=== PATIENT | female | born 1950 | race Caucasian/White ===

== ENCOUNTER 2024-01-06 10:23 | Emergency (ER) | payer MEDICARE, SELFPAY ==
[2024-01-06 10:35] VITALS: BP 155/61; PULSE 76; TEMP 36.8; O2SAT 99; BMI 25.7
--- NOTE | 2024-01-06 10:59 | ECG_ITS ---
[facility] Test Date: 2024-01-06 Pat Name: MARIA G KELLY Department: Room: - Gender: Female Staffing Specialist: : [id number] Requested By: EVELIA GANN Order Number: [id number] Reading MD: QUIN CATES Measurements Intervals [place] Rate: 62 P: 60 [place]: 184 QRS: 38 QRSD: 114 T: 79 QT: 454 QTc: 458 Interpretive Statements 1100 Sinus rhythm 9150 abnormal ECG Electronically Signed On 01-06-2024 22:31:19 EDT by QUIN CATES
--- NOTE | 2024-01-06 11:02 | ED.GENADUL1 ---
HPI HPI - General Adult General Chief complaint: Weakness Stated complaint: CAN'T EAT/DRINK Time Seen by Provider: 01/06/24 10:59 History of Present Illness HPI narrative: Patient is a 73-year-old complaining of lack of bowel movements, fatigue, weakness, and also acute on chronic left hip pain. No recent fall. Patient lives at home with friends. Patient does have a history of cancer. 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 Patient states she has not been eating much over the last several weeks. Patient was in the hospital from to Friday, secondary to dehydration, weakness and fatigue. Patient had her last chemo dose 3 weeks ago. Patient is complaining of fatigue, nausea vomiting, some mild dysphagia. Patient does have a indwelling Ayoub catheter. Patient's friend is at bedside. Patient lives at home with friends. Patient's oncologist is Dr. MORRISON. Patient does have a PCP as well. Patient has no headache or neck pain. No chest pain or shortness of breath. Patient states that she is not having any bowel movements, but she is also not eating much in the past several weeks to month. All systems are negative except as noted/marked. All systems reviewed and otherwise negative. Nurses note and vital signs reviewed and patient is not hypoxic. General: The patient appears well and in no apparent distress. Patient is resting comfortably on cart. Patient is not toxic, lethargic, or listless Skin: Warm, dry, no pallor noted. There is no rash noted. No petechiae, purpura. Head: Normocephalic, atraumatic Eye: Normal conjunctiva, no drainage, EOMI. PERRL Ears, Nose, Mouth, and Throat: oral mucosa is moist. Nares patent. Mouth without vesicles. Cardiovascular: Regular Rate and Rhythm, no murmur, gallop, rub Respiratory: Patient is in no distress, no accessory muscle use, lungs are clear to auscultation, no wheezing, rales or rhonchi Back: non-tender, no CVA tenderness bilaterally to percussion. No CT LS midline pain GI: Minimal periumbilical tenderness to palpation, no peritoneal signs, no flank pain bilateral, otherwise no tenderness to palpation, no masses appreciated. No rebound, guarding, or rigidity noted. No distention. Musculoskeletal: Patient has full range of motion of all of the extremities, no motor, sensory, or focal neurological deficits Neurological: A&O x4, normal speech Psychiatric: Cooperative Related Data Previous Rx's ?Medication ?Instructions ?Recorded cephalexin 500 mg capsule 500 mg PO Q12H 7 days #14 caps 01/06/24 Allergies Allergy/AdvReac Type Severity Reaction Status Date / Time No Known Drug Allergies Allergy Verified 01/06/24 10:35 Opioid HPI Opioid Management Most Recent Opioid Data: No Data to Display [facility] PFS Medical History (Updated 01/06/24 @ 12:36 by Ramiro Zazueta MD) Chronic kidney disease ?N18.9 - Chronic kidney disease, unspecified (ICD-10) Primary lung cancer ?C34.90 - Malignant neoplasm of unspecified part of unspecified bronchus or lung (ICD-10) Breast cancer ?C50.919 - Malignant neoplasm of unspecified site of unspecified female breast (ICD-10) Surgical History (Updated 01/06/24 @ 10:53 by Lucie Mahajan RN) History of mastectomy ?Z90.10 - Acquired absence of unspecified breast and nipple (ICD-10) Exam Constitutional Vital Signs, click to edit/add: Last Vital Signs Temp 98.3 F 01/06/24 10:35 Pulse 76 01/06/24 10:35 Resp 18 01/06/24 10:35 BP 155/61 H 01/06/24 10:35 Pulse Ox 99 01/06/24 10:35 O2 Del Method Room Air 01/06/24 10:35 Course Vital Signs Vital signs: Vital Signs Temperature 98.3 F 01/06/24 10:35 Pulse Rate 76 01/06/24 10:35 Respiratory Rate 18 01/06/24 10:35 Blood Pressure 155/61 H 01/06/24 10:35 Pulse Oximetry 99 01/06/24 10:35 Oxygen Delivery Method Room Air 01/06/24 10:35 Temperature 98.3 F 01/06/24 10:35 Pulse Rate 76 01/06/24 10:35 Respiratory Rate 18 01/06/24 10:35 Blood Pressure 155/61 H 01/06/24 10:35 Pulse Oximetry 99 01/06/24 10:35 Oxygen Delivery Method Room Air 01/06/24 10:35 Medical Decision Making MDM Narrative Medical decision making narrative: Patient lab work shows no significant findings. Patient was given 1 L of IV fluid. Patient does have a indwelling Ayoub catheter that was just placed on . Patient does have evidence of urinary tract infection, she was given a gram of Rocephin. Patient was sent in with Keflex, urine culture is pending. Patient was also given oral potassium and magnesium for low levels. Patient will follow-up with Dr. MORRISON, her oncologist. Lengthy amount of time was spent speaking to the patient about palliative care. Patient has not heard a palliative care previously. Education on pelvic care, hospice was done, she will follow-up with her PCP and oncologist for referrals as indicated. Lab Data Labs: Lab Results 01/06/24 01/06/24 01/06/24 Range/Units 10:43 10:45 11:14 WBC 4.6 (4.0-11.0) 10^3/uL RBC 2.84 L (4.20-5.40) 10^6/uL Hgb 8.7 L (12.0-16.0) g/dL Hct 27.3 L (36.0-48.0) % MCV 96.1 (81.0-99.0) fL MCH 30.6 (26.7-34.0) pg MCHC 31.9 (29.9-35.2) g/dL RDW 15.8 H (11.0-15.0) % Plt Count 65 L (150-450) 10^3/uL MPV 12.7 (9.5-13.5) fL Neut % (Auto) 71.2 (43.0-75.0) % Lymph % (Auto) 10.4 L (20.5-60.0) % [place] % (Auto) 15.6 H (1.7-12.0) % Eos % (Auto) 2.4 (0.9-7.0) % Baso % (Auto) 0.0 L (0.2-2.0) % Neut # (Auto) 3.3 (1.4-6.5) 10^3/uL Lymph # (Auto) 0.5 L (1.2-3.8) 10^3/uL [place] # (Auto) 0.7 (0.3-0.8) 10^3/uL Eos # (Auto) 0.1 (0.0-0.7) 10^3/uL Baso # (Auto) 0.0 (0.0-0.1) 10^3/uL Abs Immat Gran (auto) 0.02 (0.00-0.03) 10^3/uL Imm/Tot Granulo (auto) 0.4 (0.0-0.5) % VBG pH 7.396 (7.330-7.430) VBG pCO2 32.5 L (40.0-52.0) mmHg Sodium 141 (136-145) mmol/L Potassium 3.4 L (3.5-5.1) mmol/L Chloride 105 (98-107) mmol/L Carbon Dioxide 23.6 (21.0-32.0) mmol/L Anion Gap 15.8 BUN 21.0 H (7.0-18.0) mg/dL Creatinine 1.47 H (0.55-1.02) mg/dL Est GFR ( Amer) 42 L (>=60) Est GFR (Non-Af Amer) 35 L (>=60) BUN/Creatinine Ratio 14.3 Glucose 141 H (74-106) mg/dL Calcium 9.0 (8.5-10.1) mg/dL Magnesium 1.6 L (1.8-2.4) mg/dL Total Bilirubin 0.5 (0.2-1.0) mg/dL AST 23 (15-37) U/L ALT 14 (14-59) U/L Alkaline Phosphatase 84 (46-116) U/L Troponin I High Sens 16.1 (4.0-51.3) pg/mL Total Protein 6.9 (6.4-8.2) g/dL Albumin 2.4 L (3.4-5.0) g/dL Globulin 4.5 g/dL Albumin/Globulin Ratio 0.5 Lipase 29.0 (16.0-77.0) U/L Urine Color Yellow (YELLOW) Urine Clarity Cloudy A (CLEAR) Urine pH 5.5 (5.0-9.0) Ur Specific [place] >=1.030 A (1.005-1.025) Urine Protein >=300 A (NEG/TRACE) mg/dL Urine Glucose (UA) Negative (NEGATIVE) mg/dL Urine Ketones Negative (NEGATIVE) mg/dL Urine Occult Blood Large A (NEGATIVE) Urine Nitrite Negative (NEGATIVE) Urine Bilirubin Negative (NEGATIVE) Urine Urobilinogen 0.2 (0.2-1.0) EU/dL Ur Leukocyte Esterase Moderate A (NEGATIVE) Urine RBC 10-20 A (0-2) #/HPF Urine WBC >100 A (NONE SEEN) #/HPF Ur Squamous Epith Cells Few A (NONE/RARE) #/LPF Urine Bacteria Large A (NONE SEEN) #/HPF Urine Mucus None seen (NONE SEEN) Ur Culture Indicated? Yes ECG Data Attestation: I personally reviewed and interpreted this ECG as follows: (EKG interpretation. Normal sinus rhythm at 62 beats a minute. Normal axis deviation. No acute ST elevation, no acute ectopy. Artifact noted. QTc of 458) Discharge Plan Discharge Chief Complaint: Weakness Clinical Impression: Mild dehydration, UTI (urinary tract infection) due to urinary indwelling catheter, Hypokalemia, Hypomagnesemia, Fatigue, Chronic pain Patient Disposition: Home, Self-Care Time of Disposition Decision: 12:38 Condition: Fair Mode of Transportation: Private Vehicle Prescriptions / Home Meds: New cephalexin 500 mg capsule 500 mg PO Q12H 7 Days Qty: 14 0RF Print Language: British Instructions: Dehydration (ED), Hypokalemia (ED), Chronic Pain (ED), Hypomagnesemia (ED), Fatigue (ED), Urinary Tract Infection in Older Adults (ED) Additional Instructions: Continue to increase fluids. Take your next dose of your antibiotic tomorrow, the antibiotic you are given today is a 24-hour medication. Your potassium and magnesium levels were slightly low, you were given supplements in the ER. Follow-up with Dr. MORRISON your oncologist, along with your PCP. Palliative care physician and team is what we have discussed at bedside, they help manage chronic pain especially cancer and help with end-of-life care as well. This may benefit you in helping you with your pain. Referrals: EVELIA GANN [Primary Care Provider] - 1 week Discharge Date/Time: 01/06/24 13:17
[2024-01-06 11:07] LABS: Eosinophils Absolute Auto 0.1 10^3/uL (0.0-0.7); Eosinophils Percent Auto 2.4 % (0.9-7.0); Hematocrit 27.3 % (36.0-48.0); Hemoglobin 8.7 g/dL (12.0-16.0); Immature Granulocytes Abs Auto 0.02 10^3/uL (0.00-0.03); Immature Granulocytes Pct Auto 0.4 % (0.0-0.5); Lymphocytes Absolute Auto 0.5 10^3/uL (1.2-3.8); Lymphocytes Percent Auto 10.4 % (20.5-60.0); Mean Corpuscular HGB Conc 31.9 g/dL (29.9-35.2); Mean Corpuscular Hemoglobin 30.6 pg (26.7-34.0); Mean Corpuscular Volume 96.1 fL (81.0-99.0); Mean Platelet Volume 12.7 fL (9.5-13.5); Monocytes Absolute Auto 0.7 10^3/uL (0.3-0.8); Monocytes Percent Auto 15.6 % (1.7-12.0); Neutrophils Absolute Auto 3.3 10^3/uL (1.4-6.5); Neutrophils Percent Auto 71.2 % (43.0-75.0); Platelet Count 65 10^3/uL (150-450); Red Blood Count 2.84 10^6/uL (4.20-5.40); Red Cell Distribution Width 15.8 % (11.0-15.0); White Blood Count 4.6 10^3/uL (4.0-11.0)
[2024-01-06 11:19] LABS: Alanine Aminotransferase 14 U/L (14-59); Albumin Globulin Ratio 0.5; Albumin Level 2.4 g/dL (3.4-5.0); Alkaline Phosphatase 84 U/L (46-116); Anion Gap 15.8; Aspartate Amino Transferase 23 U/L (15-37); BUN Creatinine Ratio 14.3; Bilirubin Total 0.5 mg/dL (0.2-1.0); Carbon Dioxide 23.6 mmol/L (21.0-32.0); Chloride 105 mmol/L (98-107); Estimated GFR (African America 42 (>=60); Estimated GFR (Non-African Ame 35 (>=60); Globulin 4.5 g/dL; Glucose 141 mg/dL (74-106); Magnesium 1.6 mg/dL (1.8-2.4); Potassium 3.4 mmol/L (3.5-5.1); Sodium 141 mmol/L (136-145); Total Protein 6.9 g/dL (6.4-8.2); Troponin I High Sensitivity 16.1 pg/mL (4.0-51.3)
[2024-01-06] MEDS: 0.9 % SODIUM CHLORIDE 1,000 ML 999 ML IV (11:19)
[2024-01-06 11:24] LABS: PCO2 VBG 32.5 mmHg (40.0-52.0); pH VBG 7.396 (7.330-7.430)
[2024-01-06 11:36] LABS: Bilirubin Urine NEGATIVE (NEGATIVE); Blood Urine LARGE (NEGATIVE); Color Urine YELLOW (YELLOW); Glucose Urine UA NEGATIVE (NEGATIVE); Ketones Urine NEGATIVE (NEGATIVE); Leukocyte Esterase Urine MODERATE (NEGATIVE); Nitrite Urine NEGATIVE (NEGATIVE); Protein Urine >=300 mg/dL (NEG/TRACE); Specific Gravity Urine >=1.030 (1.005-1.025); Urobilinogen Urine 0.2 EU/dL (0.2-1.0); pH Urine 5.5 (5.0-9.0)
[2024-01-06 11:39] LABS: Clarity Urine CLOUDY (CLEAR)
[2024-01-06 11:40] LABS: Urine Microscopic Indicated YES
[2024-01-06 11:43] LABS: Bacteria Urine LARGE #/HPF (NONE SEEN); Mucus Urine NONE SEEN (NONE SEEN); Squamous Epithelial Cell Urine FEW #/LPF (NONE/RARE); WBC Urine >100 #/HPF (NONE SEEN)
[2024-01-06 11:44] LABS: Urine Culture Indicated YES
[2024-01-06] MEDS: CEFTRIAXONE 1,000 MG in 0.9 % SODIUM CHLORIDE 50 ML 100 MG IV (12:32)
[2024-01-06] MEDS: POTASSIUM BICARBONATE/CIT 25 MEQ TABLET EFF 50 MEQ PO (12:46)
[2024-01-06] MEDS: MAGNESIUM OXIDE 400 MG TABLET 800 MG PO (12:46)
== END 2024-01-06 13:17 | disposition home or self-care (01) ==
PROVIDERS: Emergency Provider Emergency Medicine; PCP Internal Medicine
DX: T83.511A Infection and inflammatory reaction due to indwelling urethral catheter, initial encounter (principal); E86.0 Dehydration; E87.6 Hypokalemia; E83.42 Hypomagnesemia; R53.83 Other fatigue; G89.29 Other chronic pain; C79.89 Secondary malignant neoplasm of other specified sites; Z79.899 Other long term (current) drug therapy
CPT/HCPCS: 36415; 80053; 81001; 82800; 83690; 83735; 84484; 85025; 87086; 93005; 96361; 96365; 99284; J0696